=== PATIENT | male | born 1980 | race Caucasian/White ===

== ENCOUNTER 2017-01-19 10:34 | Emergency (ER) | payer OTHER ==
[~2017-01-19] VITALS: Ht 154.9 cm; Wt 103.4 kg
[2017-01-19 11:18] LABS: BASOPHIL % 0.4 % (0-2); PLATELET COUNT 262 x10^3mcL (130-400); RED CELL DISTRIBUTION WIDTH 13.8 % (11.5-14.5)
[2017-01-19 11:42] LABS: T3 TOTAL 1.52 ng/mL
[2017-01-19 12:05] VITALS: BP 132/84
[2017-01-19 12:05] LABS: FREE T4 0.96 ng/dL (0.76-1.46); FREE THYROXINE INDEX 2.4 ug/dL (1.4-4.5); T4(THYROXINE) 7.4 ug/dL (4.7-13.3)
[2017-01-19 12:51] LABS: ALBUMIN 3.8 g/dL (3.4-5.0); ALKALINE PHOSPHATASE 75 U/L (46-116); ALT/SGPT 30 U/L (16-63); AST/SGOT 17 U/L (15-37); BILIRUBIN TOTAL 0.4 mg/dL (0.20-1.00); CALCIUM 9.2 mg/dL (8.5-10.1); CARBON DIOXIDE 24.2 mmol/L (21-32); CHLORIDE SERUM 101 mmol/L (98-107); CHOLESTEROL 175 mg/dL (<200); CHOLESTEROL/HDL RATIO 3.4; GFR1 > 60 mL/min; GLUCOSE SERUM 123 mg/dL (74-106); HDL CHOLESTEROL 51 mg/dL (40-60); LIPASE 148 IU/L (73-393); POTASSIUM SERUM 3.5 mmol/L (3.5-5.1); SODIUM SERUM 137 mmol/L (136-145); TOTAL PROTEIN, SERUM 7.6 g/dL (6.4-8.2); TRIGLYCERIDES 139 mg/dL (<150)
[2017-01-19 13:48] LABS: microscopic required? NO
[2017-01-19 14:14] LABS: urine erythrocyte NEGATIVE (NEGATIVE)
== END 2017-01-19 14:44 | disposition home or self-care (01) ==
LOC: ED 10:34
PROVIDERS: Specialist
DX: R42 Dizziness and giddiness (principal)
CPT/HCPCS: 83880; 84439; J2405; J8597; Q0092

== ENCOUNTER 2018-03-07 13:30 | Emergency (ER) | payer OTHER ==
[~2018-03-07] VITALS: Ht 154.9 cm; Wt 114.3 kg
[2018-03-07 13:38] VITALS: Ht 154.9 cm; Wt 114.3 kg
[2018-03-07 14:32] LABS: BASOPHIL % 0.4 % (0-2); PLATELET COUNT 254 x10^3mcL (130-400)
[2018-03-07 15:02] LABS: CALCIUM 8.9 mg/dL (8.5-10.1); CARBON DIOXIDE 28.4 mmol/L (21-32); CHLORIDE SERUM 103 mmol/L (98-107); CREATININE SERUM 0.8 mg/dL (0.7-1.3); GFR1 > 60 mL/min; GLUCOSE SERUM 93 mg/dL (74-106); POTASSIUM SERUM 3.7 mmol/L (3.5-5.1); SODIUM SERUM 135 mmol/L (136-145)
[2018-03-07 15:07] LABS: ALBUMIN 3.7 g/dL (3.4-5.0); ALKALINE PHOSPHATASE 88 U/L (46-116); ALT/SGPT 43 U/L (16-63); AST/SGOT 29 U/L (15-37); BILIRUBIN TOTAL 0.52 mg/dL (0.20-1.00); CHOLESTEROL 192 mg/dL (<200); HDL CHOLESTEROL 47 mg/dL (40-60); PHOSPHOROUS 3.7 mg/dL (2.5-4.9); TOTAL PROTEIN, SERUM 7.7 g/dL (6.4-8.2); URIC ACID 5.6 mg/dL (3.5-7.2)
[2018-03-07 15:34] VITALS: BP 158/88
== END 2018-03-07 15:34 | disposition home or self-care (01) ==
LOC: ED 13:30
PROVIDERS: Emergency Medicine
DX: R42 Dizziness and giddiness (principal); F41.9 Anxiety disorder, unspecified
CPT/HCPCS: 36415; 83880

== ENCOUNTER 2019-06-04 07:12 | Emergency (ER) | payer OTHER ==
[~2019-06-04] VITALS: Ht 154.9 cm; Wt 117.0 kg
[2019-06-04 07:17] VITALS: Ht 154.9 cm; Wt 117.0 kg
[2019-06-04 09:18] VITALS: BP 143/95
== END 2019-06-04 09:18 | disposition home or self-care (01) ==
LOC: ED 07:12
DX: I10 Essential (primary) hypertension (principal); K21.9 Gastro-esophageal reflux disease without esophagitis
CPT/HCPCS: 82962

== ENCOUNTER 2019-12-07 13:20 | Emergency (ER) | payer OTHER, SELFPAY ==
[~2019-12-07] VITALS: Ht 154.9 cm; Wt 110.2 kg
[2019-12-07 13:41] VITALS: BP 141/95; Ht 154.9 cm; Wt 110.2 kg
[2019-12-07 14:32] LABS: BASOPHIL % 0.1 % (0-2); PLATELET COUNT 236 x10^3mcL (130-400); RED CELL DISTRIBUTION WIDTH 14.6 % (11.5-14.5)
[2019-12-07 14:47] LABS: CALCIUM 8.3 mg/dL (8.5-10.1); CARBON DIOXIDE 26.5 mmol/L (21-32); CHLORIDE SERUM 101 mmol/L (98-107); CREATININE SERUM 0.8 mg/dL (0.7-1.3); GFR1 > 60 mL/min; GLUCOSE SERUM 95 mg/dL (74-106); POTASSIUM SERUM 3.1 mmol/L (3.5-5.1); SODIUM SERUM 138 mmol/L (136-145)
[2019-12-07 14:51] LABS: ALBUMIN 2.7 g/dL (3.4-5.0); ALKALINE PHOSPHATASE 174 U/L (46-116); ALT/SGPT 119 U/L (16-63); AST/SGOT 218 U/L (15-37); BILIRUBIN TOTAL 0.5 mg/dL (0.20-1.00); TOTAL PROTEIN, SERUM 7.5 g/dL (6.4-8.2)
== END 2019-12-07 15:30 | disposition home or self-care (01) ==
LOC: ED 13:20
PROVIDERS: Emergency Medicine
DX: Z20.828 Contact with and (suspected) exposure to other viral communicable diseases (principal); K21.9 Gastro-esophageal reflux disease without esophagitis
CPT/HCPCS: 36415; Q0092

== ENCOUNTER 2020-01-23 09:42 | Emergency (ER) | payer OTHER ==
[~2020-01-23] VITALS: Ht 154.9 cm; Wt 114.3 kg
[2020-01-23 09:59] VITALS: Ht 154.9 cm; Wt 114.3 kg
[2020-01-23 12:02] LABS: PLATELET COUNT 178 x10^3mcL (130-400); RED CELL DISTRIBUTION WIDTH 13.9 % (11.5-14.5)
[2020-01-23 12:08] LABS: CALCIUM 8.2 mg/dL (8.5-10.1); CARBON DIOXIDE 30.5 mmol/L (21-32); CHLORIDE SERUM 96 mmol/L (98-107); CREATININE SERUM 0.8 mg/dL (0.7-1.3); GFR1 > 60 mL/min; GLUCOSE SERUM 141 mg/dL (74-106); POTASSIUM SERUM 3.1 mmol/L (3.5-5.1); SODIUM SERUM 134 mmol/L (136-145)
[2020-01-23 12:12] LABS: ALKALINE PHOSPHATASE 160 U/L (46-116); ALT/SGPT 75 U/L (16-63); AST/SGOT 141 U/L (15-37); BILIRUBIN TOTAL 0.7 mg/dL (0.20-1.00)
[2020-01-23 12:13] LABS: ALBUMIN 2.8 g/dL (3.4-5.0); TOTAL PROTEIN, SERUM 8.5 g/dL (6.4-8.2)
[2020-01-23 13:57] LABS: BAND NEUTROPHIL 0 % (0-10)
[2020-01-23 14:22] VITALS: BP 140/99
== END 2020-01-23 14:22 | disposition home or self-care (01) ==
LOC: ED 09:42
PROVIDERS: Emergency Medicine
DX: E87.6 Hypokalemia (principal); R79.89 Other specified abnormal findings of blood chemistry; I10 Essential (primary) hypertension; K21.9 Gastro-esophageal reflux disease without esophagitis; R42 Dizziness and giddiness; R53.1 Weakness
CPT/HCPCS: 82962; J7030; Q0092